=== PATIENT | male | born 1985 | race Caucasian/White ===

== ENCOUNTER 2020-06-29 12:12 | Emergency (ER) | payer SELFPAY ==
[2020-06-29] MEDS ORDERED: Lactated Ringers 1,000 ML IV ONE (12:27)
[2020-06-29] MEDS ORDERED: Famotidine 20 MG/2 ML SDV IVPUSH ONE (12:27)
[2020-06-29] MEDS ORDERED: Pantoprazole 40 MG Vial IVPUSH ONE (12:27)
--- NOTE | 2020-06-29 12:27 | EDM.PDOC ---
ED HPI GENERAL MEDICAL PROBLEM - General Chief Complaint: General Stated Complaint: right back and lower extremity pain Time Seen by Provider: 06/29/20 12:20 Source of Information: Reports: Patient, Other (Friend, Gunjan). Denies: Old Records (No [facility] records available) History Limitations: Reports: No Limitations - History of Present Illness INITIAL COMMENTS - FREE TEXT/NARRATIVE: The patient was brought to the emergency room via private automobile by his friend for evaluation of 10 right-sided CVA tenderness radiating to the right testicular and inguinal region with symptoms progressing since 6 AM yesterday morning. Note that the patient's has also had progressive urinary retention since that time and has had minimal dribbling with no previous history of urolithiasis, or similar type symptoms in the past. He has had some mild nausea without emesis and some mild diaphoresis with colic type symptoms but no gross hematuria, dysuria, etc.. No recent history of other abdominal pain, heartburn, diarrhea, melena, gross hematochezia, or any food intolerance, including fatty foods, etc. with somewhat hard bowel movement yesterday at about 1 PM. The patient denies any chest pain/pressure, heart flutter, orthostasis, orthopnea, paresthesias, recent decreased exercise tolerance, or any other anginal-type symptoms with occasional nonspecific dizziness. He does have a previous history of some CHF earlier this year as below. The patient also denies any recent fever, cough, wheezing, dyspnea, etc.. He did have his second Moderna COVID-19 immunization about 2 weeks ago without apparent complications. Patient did take 2 Excedrin tablets yesterday evening with no other medications to this point. Onset: Gradual Onset Date: 06/28/20 Onset Time: 06:00 Duration: Constant, Getting Worse Location: Reports: Back, Lower Extremity, Right (As above- right inguinal), Radiates to Quality: Reports: Same as Previous Episode, Sharp Severity: Severe Improves with: Reports: None Worsens with: Reports: None Context: Reports: Other (As above). Denies: Sick Contact, Trauma Associated Symptoms: Reports: Diaphoresis, Nausea/Vomiting (No emesis). Denies: Confusion, Chest Pain, Cough, Fever/Chills, Headaches, Loss of Appetite, Malaise, Rash, Seizure, Shortness of Breath, Syncope, Weakness Treatments DATA ENTRY MANAGER: Reports: Other Medication(s) (As above) Right Back Pain Score (Numeric/FACES): 10 right lower back Pain Score (Numeric/FACES): 10 - Related Data Allergies Allergy/AdvReac Type Severity Reaction Status Date / Time No Known Allergies Allergy Verified 06/29/20 12:51 Home Meds: Home Meds Aspirin [Children's Aspirin] 81 mg PO DAILY 06/29/20 [History] Aspirin/Acetaminophen/Caffeine [Excedrin Extra Strength Caplet] 2 tab PO DAILY PRN 06/29/20 [History] Cyclobenzaprine [Flexeril] 10 mg PO TID PRN #30 tab 06/29/20 [Rx] carvediloL [Coreg] 12.5 mg PO BID 06/29/20 [History] lisinopriL [Lisinopril] 5 mg PO DAILY 06/29/20 [History] Past Medical History HEENT History: Reports: Otitis Media, Other (See Below) Other HEENT History: Recurrent otitis media with additional history of right- sided TM rupture requiring surgery as below. Cardiovascular History: Reports: Arrhythmia, Cardiomyopathy, Heart Failure, Heart Murmur, Hypertension, Syncope, Other (See Below). Denies: Afib, Aneurysm, Blood Clots/VTE/DVT, CAD, High Cholesterol, VA, PTCA, PVD Other Cardiovascular History: PVCs with history of bradycardia. Benign functional heart murmur as a child. CHF with bradycardia and syncopal episode in April 2020. Respiratory History: Denies: Asthma, COPD, Intubation, Previous Gastrointestinal History: Reports: Cholelithiasis, GERD, GI Bleed. Denies: Hepatitis, Jaundice, Pancreatitis Musculoskeletal History: Reports: Arthritis, Back Pain, Chronic, Osteoarthritis, Other (See Below) Other Musculoskeletal History: Osteoarthritis with history of left-sided sciatica with radiation to the buttocks with no previous injury, surgery, etc. Psychiatric History: Reports: Addiction, Other (See Below). Denies: Abuse, Victim of, ADD, ADHD, Anxiety, Depression, Psych Hospitalization(s), PTSD, Suicide Attempt, Suicidal Ideation Other Psychiatric History: Chronic marijuana use as below. Endocrine/Metabolic History: Reports: Obesity/BMI 30+. Denies: Diabetes, Type I, Diabetes, Type II, Diabetes Mellitus, Type 3c, Hypothyroidism, IDDM Dermatologic History: Reports: Chronic Cellulitis, Other (See Below) Other Dermatologic History: Folliculitis - Past Surgical History Head Surgeries/Procedures: Reports: None HEENT Surgical History: Reports: Adenoidectomy, Myringotomy w Tube(s) (Tympanoplasty on the right side secondary TM perforation at age 7. Bilateral PE tubes at age 10.), Tonsillectomy, Other (See Below). Denies: Eye Surgery, Naso-Sinus Surgery Other HEENT Surgeries/Procedures: Tonsillectomy and adenoidectomy as a child. Cardiovascular Surgical History: Reports: None. Denies: Varicose Respiratory Surgical History: Reports: None. Denies: Thoracentesis GI Surgical History: Reports: Appendectomy, Cholecystectomy, Other (See Below). Denies: Hernia, Abdominal, Hernia, Inguinal, Hernia Repair/Other Other GI Surgeries/Procedures: Laparoscopic cholecystectomy with possible concomitant appendectomy at age 19, however patient is not certain whether appendectomy was actually performed. Male Surgical History: Reports: Circumcision, Other (See Below). Denies: TURP-Transurethral Resection of Prostate, Vasectomy Other Male Surgeries/Procedures: Circumcision as an infant. Endocrine Surgical History: Reports: None. Denies: Thyroid Biopsy Neurological Surgical History: Reports: None. Denies: C-Spine, Discectomy, Laminectomy, Lumbar Spine, Sacral Spine, Spinal Fusion, Thoracic Spine, Vertebroplasty Musculoskeletal Surgical History: Reports: None. Denies: Arthroscopic Procedure, Carpal Tunnel, Ganglion Cyst, Joint Replacement, ORIF, Shoulder Surgery Oncologic Surgical History: Reports: None Dermatological Surgical History: Reports: None - Past Imaging History Past Imaging History: Reports: Cardiac Echo (April 2020) Social & Family History - Tobacco Use Tobacco Use Status *Q: Current Every Day Tobacco User Tobacco Use Within Last Twelve Months: Cigarettes Years of Tobacco use: 15 Packs/Tins Daily: 0.5 Packs/Tins Daily Comment: Started smoking at age 20 with maximum use of 2 packs/day. Used Tobacco, but Quit: No Smoking Cessation Information Provided To Patient: Yes Second Hand Smoke Exposure: Yes Source of Second Hand Smoke Exposure: Friends Second Hand Smoke Education Provided: Yes - Caffeine Use Caffeine Use: Reports: Coffee (12 cups/day), Energy Drinks (1 can/week), Soda (8 sodas per day). Denies: Tea - Alcohol Use Alcohol Use History: Yes Days Per Week of Alcohol Use: 5 Number of Drinks Per Day: 1 Number of Drinks Per Day Comment: Usually wine. No previous DWIs, problems with alcohol abuse, etc. Total Drinks Per Week: 5 Alcohol Use in Last Twelve Months: Yes Alcohol Use Frequency: Daily - Recreational Drug Use Recreational Drug Use: Yes Drug Use in Last 12 Months: Yes Recreational Drug Type: Reports: Marijuana/Hashish (Started use at age 14 with current use of 2 bowls per day.). Denies: Amphetamines (Speed), Cocaine, Heroin, Inhalants (Glues, Solvents, Aerosols), LSD (Acid), Methamphetamine, Methaqualone, Morphine, Oxycodone - Sexual History Sexual History: Reports: Other (See Below) Other Sexual History Comment: Homosexual practicing safe sex. - Living Situation & Occupation Living situation: Reports: Single (No children), Other (Roommates. 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 ED EXAM, GENERAL - Physical Exam Exam: See Below Exam Limited By: No Limitations General Appearance: Alert, WD/WN, No Apparent Distress, Anxious (Moderate secondary to discomfort) Head: Atraumatic, Normocephalic. No: Facial Swelling, Facial Tenderness, Sinus Tenderness Neck: Normal Inspection, Supple, Non-Tender, Full Range of Motion. No: Carotid Bruit, Lymphadenopathy (L), Lymphadenopathy (R), Thyromegaly Respiratory/Chest: No Respiratory Distress, Lungs Clear, Normal Breath Sounds, No Accessory Muscle Use, Chest Non-Tender. No: Pleural Rub, Retractions Cardiovascular: Normal Peripheral Pulses, Regular Rate, Rhythm, No Edema, No Gallop, No JVD, No Murmur, No Rub. No: Gallop/S3, Gallop/S4, Friction Rub Peripheral Pulses: 2+: Radial (L), Radial (R), Dorsalis Pedis (L), Dorsalis Ped is (R) GI/Abdominal: Normal Bowel Sounds, Soft, Non-Tender, No Organomegaly, No Distention, No Abnormal Bruit, No Mass, Pelvis Stable, Other (Obese). No: Guarding Rectal (Males) Exam: Deferred Back Exam: CVA Tenderness (R), Decreased Range of Motion, Muscle Spasm (Borderline right mid paraspinal with mild localized tenderness), Paraspinal Tenderness (As above). No: CVA Tenderness (L), Vertebral Tenderness Extremities: Normal Inspection, Normal Range of Motion, Non-Tender, No Pedal Edema, Normal Capillary Refill. No: Jhonny's Sign Neurological: Alert, Oriented, CN II-XII Intact, Normal Cognition, Normal Gait, Normal Reflexes (Negative Babinski's), No Motor/Sensory Deficits Psychiatric: Anxious (As above). No: Depressed Mood Skin Exam: Diaphoretic (Mild), Tattoo(s) (Multiple), Other (Multiple areas of folliculitis particularly on the lower extremities) Lymphatic: No Adenopathy Course - Vital Signs Last Recorded V/S: Last Vital Signs Temp 36.1 C 06/29/20 12:15 Pulse 87 06/29/20 13:12 Resp 19 06/29/20 13:12 BP 126/85 06/29/20 13:12 Pulse Ox 98 06/29/20 13:12 Vital Signs - 24 hr 06/29/20 06/29/20 06/29/20 12:15 12:37 12:54 Temperature [ 36.1 C Temporal] Pulse, 97 96 89 Peripheral [ Left] Respiratory 17 19 19 Rate Blood Pressure 151/113 H 138/100 H 141/96 H [Left Upper Arm ] O2 Sat by Pulse 98 99 98 Oximetry 06/29/20 13:12 Temperature [ Temporal] Pulse, 87 Peripheral [ Left] Respiratory 19 Rate Blood Pressure 126/85 [Left Upper Arm ] O2 Sat by Pulse 98 Oximetry - Orders/Labs/Meds Orders: Active Orders 24 hr Category Date Time Status Bladder Scan [RC] ASDIRECTED Care 06/29/20 14:40 Active Cardiac Monitoring [RC] . DIRECTED Care 06/29/20 12:20 Active Insert Kelly Catheter [Insert Urinary Catheter] [OM.PC] Care 06/29/20 12:30 Ordered Q24H Peripheral IV Care [RC] . DIRECTED Care 06/29/20 12:28 Active Urinary Catheter Assessment [RC] ASDIRECTED Care 06/29/20 12:30 Active Nothing Per Oral Diet [DIET] Diet 06/29/20 Breakfast Active Abdomen Pelvis wo Cont [CT] Stat Exams 06/29/20 12:31 Taken CULTURE URINE [RM] Stat Lab 06/29/20 14:28 Received Sodium Chloride 0.9% [Saline Flush] Med 06/29/20 12:27 Active 10 ml FLUSH ASDIRECTED PRN Obtain Past Medical Record [OM.PC] Urgent Oth 06/29/20 12:27 Active Peripheral IV Insertion Adult [OM.PC] Stat Oth 06/29/20 12:27 Ordered Resuscitation Status Stat Resus Stat 06/29/20 12:27 Ordered Medication Orders Sodium Chloride (Sodium Chloride 0.9% 10 Ml Syringe) 10 ml FLUSH ASDIRECTED PRN PRN Reason: Keep Vein Open Last Admin: 06/29/20 13:11 Dose: 10 ml Documented by: Admin: 06/29/20 13:00 Dose: 10 ml Documented by: NERY Labs: Laboratory Tests 06/29/20 06/29/20 06/29/20 Range/Units 12:35 12:35 12:35 WBC 13.7 H (4.0-10.2) K/uL RBC 5.33 (4.33-5.41) M/uL Hgb 15.3 (13.1-16.8) g/dL Hct 45.4 (39.0-49.0) % MCV 85.2 (84.0-98.0) fL MCH 28.7 (28.2-33.3) pg MCHC 33.7 (31.7-36.0) g/dL RDW 14.3 H (11.2-14.1) % Plt Count 349 (150-350) K/uL Neut % (Auto) 71.3 (45.0-80.0) % Lymph % (Auto) 19.9 (10.0-50.0) % [place] % (Auto) 7.1 (2.0-14.0) % Eos % (Auto) 1.5 (0.0-5.0) % Baso % (Auto) 0.2 (0.0-2.0) % Neut # (Auto) 9.80 H (1.40-7.00) K/uL Lymph # (Auto) 2.73 (0.50-3.50) K/uL [place] # (Auto) 0.97 (0.00-1.00) K/uL Eos # (Auto) 0.20 (0.00-0.50) K/uL Baso # (Auto) 0.03 (0.00-0.20) K/uL PT 10.2 (9.5-12.0) SEC INR 1.0 APTT 25.7 (24.5-32.8) SEC Sodium (136-145) mmol/L Potassium (3.5-5.1) mmol/L Chloride (98-107) mmol/L Carbon Dioxide (21.0-32.0) mmol/L BUN (7-18) mg/dL Creatinine (0.51-1.17) mg/dL Est Cr Clr Drug Dosing mL/min Estimated GFR (MDRD) mL/min Glucose (70-99) mg/dL Lactic Acid (0.4-2.0) mmol/L Uric Acid (2.6-7.2) mg/dL Calcium (8.5-10.1) mg/dL Magnesium (1.8-2.4) mg/dL Total Bilirubin (0.2-1.0) mg/dL AST (15-37) U/L ALT (12-78) U/L Alkaline Phosphatase (46-116) IU/L Total Protein (6.4-8.2) g/dL Albumin (3.4-5.0) g/dL Amylase 40 (25-115) U/L Lipase (73-393) U/L Specimen Type Urine Color Urine Appearance Urine pH (5.0-9.0) Ur Specific Ingalls (1.005-1.030) Urine Protein (NEGATIVE) mg/dL Urine Glucose (UA) (NEGATIVE) mg/dL Urine Ketones (NEGATIVE) mg/dL Urine Occult Blood (NEGATIVE) Urine Nitrite (NEGATIVE) Urine Bilirubin (NEGATIVE) Urine Urobilinogen (0.2-1.0) E.U./dL Ur Leukocyte Esterase (NEGATIVE) U Hyaline Cast (Auto) Urine RBC /HPF Urine WBC /HPF Ur Epithelial Cells /LPF Urine Bacteria (NONE TO FEW) /HPF Urine Mucus (NEGATIVE) /LPF 06/29/20 06/29/20 06/29/20 Range/Units 12:35 12:35 14:28 WBC (4.0-10.2) K/uL RBC (4.33-5.41) M/uL Hgb (13.1-16.8) g/dL Hct (39.0-49.0) % MCV (84.0-98.0) fL MCH (28.2-33.3) pg MCHC (31.7-36.0) g/dL RDW (11.2-14.1) % Plt Count (150-350) K/uL Neut % (Auto) (45.0-80.0) % Lymph % (Auto) (10.0-50.0) % [place] % (Auto) (2.0-14.0) % Eos % (Auto) (0.0-5.0) % Baso % (Auto) (0.0-2.0) % Neut # (Auto) (1.40-7.00) K/uL Lymph # (Auto) (0.50-3.50) K/uL [place] # (Auto) (0.00-1.00) K/uL Eos # (Auto) (0.00-0.50) K/uL Baso # (Auto) (0.00-0.20) K/uL PT (9.5-12.0) SEC INR APTT (24.5-32.8) SEC Sodium 138 (136-145) mmol/L Potassium 4.1 (3.5-5.1) mmol/L Chloride 102 (98-107) mmol/L Carbon Dioxide 23.0 (21.0-32.0) mmol/L BUN 14 (7-18) mg/dL Creatinine 0.90 (0.51-1.17) mg/dL Est Cr Clr Drug Dosing 114.56 mL/min Estimated GFR (MDRD) > 60 mL/min Glucose 116 H (70-99) mg/dL Lactic Acid 2.4 H (0.4-2.0) mmol/L Uric Acid 5.8 (2.6-7.2) mg/dL Calcium 8.6 (8.5-10.1) mg/dL Magnesium 1.8 (1.8-2.4) mg/dL Total Bilirubin 1.2 H (0.2-1.0) mg/dL AST 29 (15-37) U/L ALT 38 (12-78) U/L Alkaline Phosphatase 76 (46-116) IU/L Total Protein 7.4 (6.4-8.2) g/dL Albumin 3.3 L (3.4-5.0) g/dL Amylase (25-115) U/L Lipase 123 (73-393) U/L Specimen Type Urincc Urine Color Dark yellow Urine Appearance Slightly cloudy Urine pH 5.0 (5.0-9.0) Ur Specific Ingalls >= 1.030 (1.005-1.030) Urine Protein 30 H (NEGATIVE) mg/dL Urine Glucose (UA) Negative (NEGATIVE) mg/dL Urine Ketones Negative (NEGATIVE) mg/dL Urine Occult Blood Negative (NEGATIVE) Urine Nitrite Negative (NEGATIVE) Urine Bilirubin Negative (NEGATIVE) Urine Urobilinogen 0.2 (0.2-1.0) E.U./dL Ur Leukocyte Esterase Negative (NEGATIVE) U Hyaline Cast (Auto) Rare Urine RBC 0-5 /HPF Urine WBC 10-20 H /HPF Ur Epithelial Cells Many H /LPF Urine Bacteria Few (NONE TO FEW) /HPF Urine Mucus Many H (NEGATIVE) /LPF Urine specimen sent for culture and sensitivity. Meds: Medications Generic Name Dose Route Start Last Admin Trade Name Annita PRN Reason Stop Dose Admin Sodium Chloride 10 ml 06/29/20 12:27 06/29/20 13:11 Sodium Chloride 0.9% 10 Ml Syringe FLUSH 10 ml ASDIRECTED PRN Administration Keep Vein Open Discontinued Medications Generic Name Dose Route Start Last Admin Trade Name Annita PRN Reason Stop Dose Admin Diazepam 2.5 mg 06/29/20 12:41 06/29/20 13:00 Diazepam 10 Mg/2 Ml Syringe IVPUSH 06/29/20 12:42 2.5 mg ONETIME ONE Administration Famotidine 40 mg 06/29/20 12:27 06/29/20 13:00 Famotidine 20 Mg/2 Ml Sdv IVPUSH 06/29/20 12:28 40 mg ONETIME ONE Administration Hydromorphone HCl 1 mg 06/29/20 12:47 06/29/20 13:01 Hydromorphone 1 Mg/Ml Syringe IVPUSH 06/29/20 12:48 1 mg ONETIME ONE Administration Lactated Ringer's 1,000 mls @ 999 mls/hr 06/29/20 12:27 06/29/20 13:04 Ringers, Lactated IV 06/29/20 13:27 999 mls/hr .BOLUS ONE Administration Ketorolac Tromethamine 30 mg 06/29/20 12:30 06/29/20 12:37 Ketorolac 30 Mg/Ml Sdv IVPUSH 06/29/20 12:31 30 mg ONETIME ONE Administration Lidocaine HCl 15 ml 06/29/20 12:35 06/29/20 13:00 Lidocaine 2% Viscous Solution 15 Ml Cup PO 06/29/20 12:36 15 ml ONETIME ONE Administration Ondansetron HCl 4 mg 06/29/20 12:47 06/29/20 13:02 Ondansetron 4 Mg/2 Ml Sdv IVPUSH 06/29/20 12:48 4 mg ONETIME ONE Administration Pantoprazole Sodium 40 mg 06/29/20 12:27 06/29/20 13:00 Pantoprazole 40 Mg Vial IVPUSH 06/29/20 12:28 40 mg ONETIME ONE Administration Tamsulosin HCl 0.4 mg 06/29/20 12:30 06/29/20 13:00 Tamsulosin 0.4 Mg Cap.Er PO 06/29/20 12:31 0.4 mg ONETIME ONE Administration - Radiology Interpretation Free Text/Narrative:: monitoring manager showed normal sinus rhythm with heart rate in the 80-90s with no ectopy or arrhythmia. CT scan of the abdomen pelvis without contrast using the stone protocol was negative for hydronephrosis, urolithiasis, etc. Incidental 1.3 cm benign lipid rich left adrenal adenoma. Evidence of circumferential L4-L5 disc prolapse with secondary significant spinal canal stenosis. A preliminary verbal report from the radiology department at [facility] in [place] was not received despite our previous request. Departure - Departure Time of Disposition: 15:46 Disposition: Home, Self-Care 01 Condition: Good Clinical Impression: Urinary retention, Folliculitis, Tobacco abuse counseling, Elevated lactic acid level, Hypoalbuminemia, Hyperbilirubinemia, Peptic reflux disease Osteoarthritis Qualifiers: Osteoarthritis location: multiple joints Osteoarthritis type: primary Qualified Code(s): M89.49 - Other hypertrophic osteoarthropathy, multiple sites Abdominal pain Qualifiers: Abdominal location: unspecified location Qualified Code(s): R10.9 - Unspecified abdominal pain - Discharge Information *PRESCRIPTION DRUG MONITORING PROGRAM REVIEWED*: Not Applicable *COPY OF PRESCRIPTION DRUG MONITORING REPORT IN PATIENT YOVANI: Not Applicable Prescriptions: Cyclobenzaprine [Flexeril] 10 mg PO TID PRN #30 tab PRN Reason: Spasms Instructions: Steps to Quit Smoking, [id number], Health Risks of Smoking, Chronic Back Pain, [id number], Spinal Stenosis, [id number] Referrals: PCP,Unknown [Primary Care Provider] - Forms: ED Department Discharge, ED Return to Work/School Form Additional Instructions: 1. Followup with your regular provider in 1-2 days as directed for reevaluation and recommended repeat CBC, comprehensive metabolic panel, direct/indirect bilirubin, and lactic acid level. Consider referral to physical therapy, neurosurgery versus orthopedic surgery, additional MRI of the lumbar spine, etc. at that time depending on your clinical symptoms. Bring these discharge instructions with you to that visit. 2. Tylenol 650 mg by mouth every 4 hours and/or OTC ibuprofen 2-3 tabs by mouth every 6 hours with food as directed./needed. You may stagger these medications for 48-72 hours only, which essentially means that you are receiving a pain medication about every 2 hours. Next dose of ibuprofen as needed in 6 hours secondary to medications given in the emergency room. 3. BenGay or equivalent, heating pad, and/or ice packs as directed. 4. Work excuse- See Form 5. Stop all tobacco and marijuana use BRANDEN as directed/per provided information and consider contacting Quit LIne, etc.. 6. Immediately after this visit verify that your cellular telephone's voicemail has been activated and is empty. Also verify that your home telephone's answering machine is operating properly and has space to receive messages. Note that it is sometimes necessary for us to be able to contact you at a later date to discuss your medical care. 7. Please remember that we are ALWAYS here for you and want to answer any questions you may have. Feel free to call the hospital any time and we call you back BRANDEN. 8. Decrease caffeine use as discussed. 9. Sedation precautions with no driving, etc. for 18 hours because of emergency room medications. 10. Initiate Flexeril in about 6 hours as discussed with sedation precautions with this medication. Sepsis Event Note (ED) - Focused Exam Vital Signs: Vital Signs Temp Pulse Resp BP Pulse Ox 06/29/20 13:12 87 19 126/85 98 06/29/20 12:54 89 19 141/96 H 98 06/29/20 12:37 96 19 138/100 H 99 04/12/21 12:15 36.1 C 97 17 151/113 H 98 - Problem List & Annotations (1) Osteoarthritis SNOMED Code(s): 183628715 Code(s): M19.90 - UNSPECIFIED OSTEOARTHRITIS, UNSPECIFIED SITE Status: Chronic Priority: High Current Visit: Yes Annotation/Comment:: CT scan of the abdomen pelvis does show evidence of significant L4-L5 disc prolapse including significant spinal stenosis. Aggressive pain control required as below. Symptomatic relief as per discharge instructions with close follow-up by a local provider and then by his regular provider after he returns back home. Note that patient has never had right-sided back pain or sciatic type symptoms with radiation of his previous left-sided sciatica usually to the buttocks. Some evidence of nonspecific right lumbar paravertebral muscle spasms with no history of injury, etc.. Radiation of his right-sided back pain is somewhat atypical in the right inguinal region based on CT scan findings as above. Further work-up, consultation/referral, as per discharge instructions depending on his clinical course. Qualifiers: Osteoarthritis location: multiple joints Osteoarthritis type: primary Qualified Code(s): M89.49 - Other hypertrophic osteoarthropathy, multiple sites (2) Abdominal pain SNOMED Code(s): 23990915 Code(s): R10.9 - UNSPECIFIED ABDOMINAL PAIN Status: Acute Priority: High Current Visit: Yes Onset Date: 06/29/20 Annotation/Comment:: Mixed clinical picture as above with mostly right CVA tenderness radiating into the right inguinal region with colic type symptoms. CT scan of the abdomen pelvis without contrast results as above with no evidence of urolithiasis, hydronephrosis, significant bladder distention, etc. Note bladder scan showed only 24 mL of residual urine. No direct evidence of a UTI with urine specimen set up for cult ure and sensitivity. Close follow-up by regular provider as per discharge instructions. Patient was given high-dose IV Pepcid and IV Protonix for GI prophylaxis. Initially suspected colic type symptoms with IV Toradol and oral Flomax given. Patient did require additional IV diazepam for pain control and his lumbar back spasms. Additional IV Zofran and IV Dilaudid were given for pain control. Note some diaphoresis, nausea without emesis during his initial emergency room care. Qualifiers: Abdominal location: unspecified location Qualified Code(s): R10.9 - Unspecified abdominal pain (3) Elevated lactic acid level SNOMED Code(s): 9961778 Code(s): R79.89 - OTHER SPECIFIED ABNORMAL FINDINGS OF BLOOD CHEMISTRY Status: Acute Priority: High Current Visit: Yes Onset Date: 06/29/20 Annotation/Comment:: Despite mild leukocytosis likely secondary to stress reaction no fever or evidence of local signs of infection. Urine specimen was sent for culture and sensitivity as above. Antibiotic therapy depending on these test results. Patient was given a 1 L bolus of lactated Ringer's solution. Blood cultures not warranted at this time. Close follow-up by local provider as per discharge instructions. (4) Urinary retention SNOMED Code(s): 417577549 Code(s): R33.9 - RETENTION OF URINE, UNSPECIFIED Status: Acute Priority: High Current Visit: Yes Onset Date: 06/28/20 Annotation/Comment:: Progressive urinary retention by history as above, although negative work-up as above. Initial plan for Kelly catheter placement, which was not conducted per the patient's request. Despite evidence of possible urinary retention no direct evidence of spinal cord injury, urinary incontinence, significant residual urine, etc. as above. Spinal cord injury precautions were given to the patient. (5) Folliculitis SNOMED Code(s): 66639519 Code(s): L73.9 - FOLLICULAR DISORDER, UNSPECIFIED Status: Chronic Priority: Medium Current Visit: Yes Annotation/Comment:: Chronic folliculitis noticed with no local signs of infection. Continue to observe closely by regular providers. (6) Hyperbilirubinemia SNOMED Code(s): 68476932 Code(s): E80.6 - OTHER DISORDERS OF BILIRUBIN METABOLISM Status: Acute Priority: Medium Current Visit: Yes Onset Date: 06/29/20 Annotation/Comment:: Possible Gilbert's syndrome. Direct and indirect bilirubin at time of follow-up visit as per discharge instructions. Note status post cholecystectomy. (7) Hypoalbuminemia SNOMED Code(s): 248114787 Code(s): E88.09 - OTH DISORDERS OF PLASMA-PROTEIN METABOLISM, NEC Status: Acute Priority: Medium Current Visit: Yes Onset Date: 06/29/20 Annotation/Comment:: Observe for now. Note current obesity. (8) Tobacco abuse counseling SNOMED Code(s): 545113958, 547458753, 127408306 Code(s): Z71.6 - TOBACCO ABUSE COUNSELING Status: Chronic Priority: Medium Current Visit: Yes Annotation/Comment:: Tobacco cessation strongly encouraged with information provided. (9) Peptic reflux disease SNOMED Code(s): 065978441 Code(s): K21.9 - GASTRO-ESOPHAGEAL REFLUX DISEASE WITHOUT ESOPHAGITIS Status: Chronic Priority: Medium Current Visit: Yes Annotation/Comment:: High-dose IV Pepcid and IV Protonix given in the emergency room. Symptoms much improved at time of discharge. Close follow-up by regular provider depending on his clinical course. - Problem List Review Problem List Initiated/Reviewed/Updated: Yes - My Orders Last 24 Hours: My Active Orders 06/29/20 Breakfast Nothing Per Oral Diet [DIET] 06/29/20 12:20 Cardiac Monitoring [RC] . DIRECTED 06/29/20 12:27 Sodium Chloride 0.9% [Saline Flush] 10 ml FLUSH ASDIRECTED PRN Obtain Past Medical Record [OM.PC] Urgent Peripheral IV Insertion Adult [OM.PC] Stat Resuscitation Status Stat 06/29/20 12:28 Peripheral IV Care [RC] . DIRECTED 06/29/20 12:30 Insert Kelly Catheter [Insert Urinary Catheter] [OM.PC] Q24H Urinary Catheter Assessment [RC] ASDIRECTED 06/29/20 12:31 Abdomen Pelvis wo Cont [CT] Stat 06/29/20 14:28 CULTURE URINE [RM] Stat 06/29/20 14:40 Bladder Scan [RC] ASDIRECTED - Assessment/Plan Last 24 Hours: My Active Orders 06/29/20 Breakfast Nothing Per Oral Diet [DIET] 06/29/20 12:20 Cardiac Monitoring [RC] . DIRECTED 06/29/20 12:27 Sodium Chloride 0.9% [Saline Flush] 10 ml FLUSH ASDIRECTED PRN Obtain Past Medical Record [OM.PC] Urgent Peripheral IV Insertion Adult [OM.PC] Stat Resuscitation Status Stat 06/29/20 12:28 Peripheral IV Care [RC] . DIRECTED 06/29/20 12:30 Insert Kelly Catheter [Insert Urinary Catheter] [OM.PC] Q24H Urinary Catheter Assessment [RC] ASDIRECTED 06/29/20 12:31 Abdomen Pelvis wo Cont [CT] Stat 06/29/20 14:28 CULTURE URINE [RM] Stat 06/29/20 14:40 Bladder Scan [RC] ASDIRECTED Assessment:: As above Plan: As above. Extensive precautions were given to the patient and his friend, who are in agreement with the treatment plan. See Patient Instructions for further treatment and plan.
[2020-06-29] MEDS ORDERED: Ketorolac 30 MG/ML SDV IVPUSH ONE (12:30)
[2020-06-29] MEDS ORDERED: Tamsulosin 0.4 MG Cap.ER PO ONE (12:30)
[2020-06-29] MEDS ORDERED: HYDROmorphone 1 MG/ML Syringe IVPUSH ONE (12:47)
[2020-06-29] MEDS ORDERED: Ondansetron 4 MG/2 ML SDV IVPUSH ONE (12:47)
[2020-06-29 12:57] LABS: CHLORIDE,CL 102 mmol/L (98-107); SODIUM,NA 138 mmol/L (136-145)
[2020-06-29 13:00] LABS: PTT,PARTIAL THROMBOPLSTIN TIME 25.7 SEC (24.5-32.8)
[2020-06-29] MEDS: Lidocaine 2% Viscous Solution 15 ML Cup PO ONE ×2 (13:00→17:08)
[2020-06-29] MEDS: Sodium Chloride 0.9% 10 ML Syringe FLUSH PRN ×2 (13:00→13:11)
== END 2020-06-29 15:45 | disposition home or self-care (01) ==
LOC: LL.ED 12:12
DX: K21.9 Gastro-esophageal reflux disease without esophagitis (principal); R33.9 Retention of urine, unspecified; L73.9 Follicular disorder, unspecified; R74.01 Elevation of levels of liver transaminase levels; E88.09 Other disorders of plasma-protein metabolism, not elsewhere classified; E80.6 Other disorders of bilirubin metabolism; M89.49 Other hypertrophic osteoarthropathy, multiple sites; Z72.0 Tobacco use; I11.0 Hypertensive heart disease with heart failure; I50.9 Heart failure, unspecified; J44.9 Chronic obstructive pulmonary disease, unspecified; E66.9 Obesity, unspecified; Z68.43 Body mass index [BMI] 50.0-59.9, adult; Z79.82 Long term (current) use of aspirin; Z79.899 Other long term (current) drug therapy
CPT/HCPCS: 36415; 51798; 74176; 80053; 81001; 82150; 83605; 83690; 83735; 84550; 85025; 85610; 85730; 87086; 96374; 96375; 99284-25; A9270-GY; C9113; J1170; J1885; J2405; J3360; J3490; J7120